=== PATIENT | male | born 1960 | race Caucasian/White ===

== ENCOUNTER 2018-12-14 05:22 | Day surgery (SDC) | payer BC ==
[2018-11-26 16:49] VITALS: Ht 177.8 cm; Wt 73.8 kg
[~2018-12-14] VITALS: Ht 177.8 cm; Wt 73.8 kg
[2018-12-14] VITALS (13 sets, daily range): BP systolic 87–119; BP diastolic 62–89; PULSE 63–88; RESP 10–18
--- NOTE | 2018-12-14 07:01 | HPN ---
Date/Time of Note Date/Time of Note DATE: 12/14/18 TIME: 07:01 Interval H&P Admission Note Pt. seen H&P reviewed: No system changes VISH HOBBS MD December 14, 2018 07:01
--- NOTE | 2018-12-14 07:02 | PREAC ---
Date/Time of Note Date/Time of Note DATE: 12/14/18 TIME: 07:00 Anesthesia Eval and Record Evaluation Time Pre-Procedure Interview DATE: 12/14/18 TIME: 07:00 Age 58 Sex male NPO: 8 hrs Preoperative diagnosis Left Ankle Fx Planned procedure Arthroscopic Ankle repair Past Medical History Past Medical History: None Surgery & Anesthesia Issues No known issue Meds Anticoagulation: No Beta Dangelo within 24 hr: No Reason Beta Dangelo not given: Pt. not on B-Dangelo No Active Prescriptions or Reported Meds Meds reviewed: Yes Allergies Coded Allergies: No Known Allergy (Unverified , 12/14/18) Allergies Reviewed: Yes Labs/Studies Labs Reviewed: Reviewed by anesthesiologist test: N/A Pre-procedure Exam Last vitals Vital Signs Date Temp Pulse Resp B/P (MAP) Pulse Ox O2 O2 Flow FiO2 Time Delivery Rate 12/14/18 97.5 63 18 117/89 99 Room Air 06:33 (98) Airway: Adequate mouth opening, Adequate thyromental dist Mallampati: Mallampati I Teeth: Normal Lung: Normal Heart: Normal ASA Physical Status ASA physical status: 1 Emergency: None Planned Anesthetic General/MAC: LMA Nerve block: Sciatic, Other (Left Popliteal block) Pre-operative Attestations Prior to commencing anesthesia and surgery, the patient was re-evaluated, there was verification of: *The patient's identity *The results of appropriate recent lab work and preoperative vital signs *The above evaluation not changing prior to induction *Anesthetic plan, risk benefits, alternative and complications discussed with patient/family; questions answered; patient/family understands, accepts and wishes to proceed. PACO RAMIREZ MD December 14, 2018 07:02
[2018-12-14] MEDS ORDERED: CEFAZOLIN 1 GM INJ ONE (07:03)
[2018-12-14] MEDS ORDERED: LIDOCAINE 100 MG SYRINGE ONE (07:03)
[2018-12-14] MEDS ORDERED: PROPOFOL 20 ML ONE (07:03)
[2018-12-14] MEDS ORDERED: FENTAnyl 50 MCG/ML VIAL ONE ×2 (07:04→09:14)
[2018-12-14] MEDS ORDERED: MIDAZOLAM 1 MG/ML 2 ML INJ ONE (07:04)
[2018-12-14] MEDS ORDERED: ROPIVACAINE 0.5 % 30 ML VIAL ONE ×2 (07:07→10:19)
[2018-12-14] MEDS ORDERED: ONDANSETRON 4 MG INJ ONE (08:04)
[2018-12-14] MEDS ORDERED: DEXAMETHASONE 4 MG/ML 5 ML INJ ONE (08:05)
[2018-12-14] MEDS ORDERED: ONDANSETRON 4 MG INJ IV PRN ×2 (08:30→12:00)
[2018-12-14] MEDS ORDERED: HYDROmorphONE 1 MG/5 ML IV SYRINGE IV PRN ×3 (08:30)
[2018-12-14] MEDS ORDERED: MEPERIDINE 25 MG INJ IV PRN (08:30)
[2018-12-14] MEDS ORDERED: DIPHENHYDRAMINE 50 MG INJ IV PRN (08:30)
[2018-12-14] MEDS ORDERED: OXYCODONE/ACETAMINOPHEN (5/325) TAB PO PRN ×3 (08:30→12:00)
[2018-12-14] MEDS ORDERED: SUGAMMADEX SODIUM 200 MG/2 ML VIAL IV ONE (10:12)
[2018-12-14] MEDS ORDERED: ROCURONIUM 50 MG INJ ONE (10:12)
[2018-12-14] MEDS ORDERED: POLYMYXIN/BACITRACIN 1L IRRIG ONE (10:19)
[2018-12-14] MEDS ORDERED: POVIDONE IODINE 10% 28.4 GM OINT ONE (10:19)
[2018-12-14] MEDS ORDERED: SOD CHLORIDE 0.9% 1,000 ML IV SCH (11:45)
--- NOTE | 2018-12-14 11:45 | OPPN ---
Date/Time of Note Date/Time of Note DATE: 12/14/18 TIME: 11:44 Operative Report Preoperative Diagnosis left ankle arthritis Postoperative Diagnosis same Operation/Procedure Performed Left ankle arthroscopic arthrodesis Surgeon see signature line library clerical assistant Raul Gee MD Anesthesia: general Estimated blood loss: minimal Transfusion Required none Specimen none Grafts/Implants none Complications none VISH HOBBS MD December 14, 2018 11:45
--- NOTE | 2018-12-14 11:48 | PAC ---
Date/Time of Note Date/Time of Note DATE: 12/14/18 TIME: 11:46 Post-Anesthesia Notes Post-Anesthesia Note Last documented vital signs Vital Signs Date Temp Pulse Resp B/P (MAP) Pulse Ox O2 O2 Flow FiO2 Time Delivery Rate 12/14/18 98.4 82 18 92/66 96 8L FM 11:40 Activity: WNL Respiratory function: WNL Cardiovascular function: WNL Mental status: Baseline Pain reasonably controlled: Yes Hydration appropriate: Yes Nausea/Vomiting absent: Yes MONICA LAWS CRNA December 14, 2018 11:48
[2018-12-14] MEDS ORDERED: morphine 2 MG INJ IV PRN (12:00)
--- NOTE | 2018-12-14 12:49 | OPR ---
DATE OF OPERATION: 12/14/2018 PREOPERATIVE DIAGNOSES: 1. Severe degenerative arthritis of the left ankle. 2. Very large anterior loose bodies. POSTOPERATIVE DIAGNOSES: 1. Severe degenerative arthritis of the left ankle. 2. Very large anterior loose bodies. OPERATION PERFORMED: 1. Arthroscopy left ankle with soft tissue distraction. 2. Extensive debridement of the ankle. 3. Removal of multiple large loose bodies, each greater than 2 cm, for a total of 5. 4. Arthrodesis of the left ankle with three 7.3 AO cannulated screws. 5. Insertion of Augment and Ignite allograft into the arthrodesis site to facilitate healing. 6. Use of fluoroscopy to verify position and alignment of guide pins, ankle and the screws. 7. Short-leg cast. SURGEON: Vish Alexander MD PREBOARDER: Raul Gee MD ANESTHESIA: General with popliteal block. TOURNIQUET TIME: 130 minutes. DESCRIPTION OF PROCEDURE: The patient was taken to operating room and placed in supine position. Sa tisfactory general anesthesia was administered after popliteal block was given, 2 grams Ancef intrave nously. Left thigh secured in the thigh lindo. Arms were carefully padded. The left leg was prepp ed and draped in usual manner. Superficial peroneal nerve was marked out. Tourniquet inflated to 25 0 mmHg and soft tissue distraction applied. Standard anteromedial, anterolateral, and posterolateral portals were used, using extreme caution to avoid injuring neurovascular structures. A large portio n of the ankle with the arthroscope inserted was devoid of articular cartilage and grade 4 chondromal acia with sclerotic bone, both the tibia and the talus. Very large loose bodies in the front of the ankle we could see on x-ray. Large osteophytes and distal tibia anteriorly and posteriorly. Shaver was inserted. All the articular cartilage was removed from the talus. A curet was used to remove so me of the articular cartilage and soft tissue peeled off the distal tibia. The spurs from the syndes mosis to the medial malleolus were excised with the bur. Articular cartilage was removed anteriorly, centrally and posteriorly from the talus and then was removed from the tibia in a similar manner usi ng curettes and monet. After all the articular cartilage had been removed, a bur was used to make rows of bone that was burred and about 1 mm of bone was removed at a time to facilitate bleeding. Th is was done on the talus and on the tibia, then on the fibula and then on the medial malleolus. A 70-degree arthroscope was then used to remove all of the articular cartilage from the medial and la teral gutters, burred down and then make multiple "spot welds" in the bony surfaces. Spot welds were placed all over the talus and tibia as well. Multiple drill holes were made with 0.062 K-wire in th e sclerotic areas. Good bleeding was obtained. The remaining portion of the posterior talus and tib ia was prepared through the posterolateral portal in a similar manner. Once this was accomplished, w e then went on to insert our screws. The Micro Vector was inserted medially in appropriate position and angled appropriately on the skin o n the medial malleolus, made an incision through the skin. Dissection carried through subcutaneous t issue. Care was taken to avoid injuring the saphenous nerve and vein. The guide pin was inserted fr om the 7.3 AO cannulated screw set in appropriate angle and direction. Similarly, the Micro Vector g uide was inserted laterally. We marked the skin along the posterolateral aspect of the fibula. Inci toya was made along the posterolateral aspect. Dissection carried down to subcutaneous tissue. The peroneal tendon sheath was opened. We placed the guide pin on the posterolateral aspect of the fibul a in appropriate position. Once both guide pins were placed, they were checked in the AP and lateral positions and adjusted to exactly where we wanted them. The wound was then closed with 3-0 black ny jarek. We left the anterior medial wound partially open and injected a combination of Ignite allograft paste with Augment. The wounds were then closed. The tourniquet was released. The foot was placed in neutral dorsi and plantar flexion, slight valgus. The medial pin was advanced, checked in the AP and lateral plane, was measured, partially drilled and then a screw inserted. Excellent fixation was obtained. The guide pin was advanced laterally, being careful with both pins to make sure they did not violate the subtalar joint. The length was measured, partially drilled and screw inserted. A th ird screw was inserted from the medial portal from the medial incision posteriorly. Once all 3 screw s were inserted, excellent position and alignment was noted. Final fluoroscopic view showed good pos ition on all 3 views of the ankle without any violation of the subtalar joint. Fluoroscopy done live revealed no motion whatsoever at the ankle, only through the talonavicular joint. Wounds irrigated with antibiotic solution repeatedly. Wounds were closed, first the deep tissues were closed with a r unning 2-0 undyed Vicryl. The subcutaneous tissue closed with 3-0 undyed Vicryl and skin with 4-0 bl ack nylon. Saphenous nerve block and 0.5% ropivacaine, compression dressing applied as well as short -leg cast in neutral position. Interprocedure sponge and needle count was correct. Patient tolerate d procedure well and the cast was split in the recovery room. Dictated By: VISH GREEN/DALIA Conf#: [id number] DID#: [id number]
--- NOTE | 2018-12-14 18:08 | OPR ---
DATE OF OPERATION: 12/14/2018 ADDENDUM: PREOPERATIVE DIAGNOSES: 1. Degenerative arthritis, severe of the left ankle. 2. Fibrosis, scarring and synovitis. 3. Loose bodies. POSTOPERATIVE DIAGNOSES: 1. Degenerative arthritis, severe of the left ankle. 2. Fibrosis, scarring and synovitis. 3. Loose bodies. NECK FITTER ORTHOPEDIC SURGEON: During the procedure, an recruitment and outreach assistant orthopedic surgeon was used at [facility]. The recruitment and outreach assistant helped with manipulating the ankle, manipulating the arthroscope and most impo rtantly helped to insert the screws in the ankle while I held the ankle reduced. Without a skilled o rthopedic surgeon recruitment and outreach assistant, this procedure could not have been done. Dictated By: VISH GREEN/DALIA Conf#: [id number] DID#: [id number]
== END 2018-12-14 14:25 | disposition home or self-care (01) ==
LOC: SDS 05:22
PROVIDERS: ATTEND Orthopaedic Surgery
DX: M13.872 Other specified arthritis, left ankle and foot (principal); M24.072 Loose body in left ankle
CPT/HCPCS: 29898; 29899; 73610; C1713; J0690; J1100; J2001; J2250; J2405; J2795; J3010